=== PATIENT | female | born 2000 | race Two or more races ===

== ENCOUNTER 2024-12-29 06:03 | Emergency (ER) | payer MEDICAID, OTHER ==
[~2024-12-29] VITALS: Ht 162.6 cm; Wt 72.7 kg
[2024-12-29 06:59] LABS: Urine Protein, UAD 2+ (Negative)
[2024-12-29] MEDS: SODIUM CHLORIDE 0.9% 1,000 ML IV ONE (07:50)
[2024-12-29] MEDS: diphenhdrAMINE HCL 50 MG/1 ML VL IV ONE (07:58)
[2024-12-29 08:05] VITALS: PULSE 100; RESP 20; O2SAT 100
--- NOTE | 2024-12-29 08:05 | ED.PDOC ---
GI ASSESSMENT HPI Comments 24 y/o F, presents to the ED for CC of abdominal pain. Patient states, she has been experiencing abdominal pain with associated symptoms of nausea and vomiting onset, x3days ago. Patient reports, positive at home test x1week ago. Patient relays, that emesis has been so severe she has been unable to keep anything down. Patient endorses, LMP to have been approximately [id number] ago. Patient complains of current 8/10 headache and pelvic pain. Patient denies vaginal bleeding, vaginal cramping, diarrhea, melena, fever, or chills. No other symptoms or modifying factors present at this time. Chief Complaint: Nausea/Vomiting Time Seen by MD: 07:00 Reviewed Notes: Nurses Notes, Medications, Allergies Allergies: Coded Allergies: NO KNOWN ALLERGIES (Unverified , 12/29/24) Home Meds Active Scripts Cephalexin (KEFLEX CAPSULE) 250 Mg Cp, 250 MG PO QID for 7 Days, #28 BOTTLE Prov:ARACELI JULIO MD 12/29/24 Information Source: Patient Mode of Arrival: Wheelchair Timing: Days Duration: Since onset Prehospital treatment: None Quality: None Vomitus: Watery Stool: Normal Severity: Moderate Recent: None Recent Hx of: Current Pain Location: Diffuse Modifying Factors: Nothing Associated sign and symptoms: Nausea, Vomiting, Abdominal Pain Past Medical History PAST MEDICAL HISTORY: Denies Surgical History: Denies all surgeries STONE POLISHER History: Denies all STONE POLISHER Hx Family History Family History: Unknown Social History Smoker: Non-Smoker Alcohol: Denies ETOH Use Drugs: Denies Drug Use Lives In: Home Constitutional: denies: chills, diaphoresis, fatigue, fever, malaise, sweats, weakness, others EENTM: denies: blurred vision, double vision, ear bleeding, ear discharge, ear drainage, ear pain, ear ringing, eye pain, eye redness, hearing loss, mouth pain, mouth swelling, nasal discharge, nose bleeding, nose congestion, nose pain, photophobia, tearing, throat pain, throat swelling, voice changes, others Respiratory: denies: cough, hemoptysis, orthopnea, SOB at rest, shortness of breath, SOB with excertion, stridor, wheezing, others Cardiovascular: denies: chest pain, dizzy spells, diaphoresis, Dyspnea on exertion, edema, irregular heart beat, left arm pain, lightheadedness, palpitations, PND, syncope, others Gastrointestinal: reports: abdominal pain, nausea, vomiting; denies: abdomen distended, blood streaked bowels, constipated, diarrhea, dysphagia, difficulty swallowing, hematemesis, melena, poor appetite, poor fluid intake, rectal bleeding, rectal pain, others Genitourinary: reports: ; denies: abnormal vagina bleeding, burning, dyspareunia, dysuria, flank pain, frequency, hematuria, incontinence, pain, vagina discharge, urgency, others Neurological: denies: dizziness, fainting, headache, left sided numbness, left sided weakness, numbness, paresthesia, pre-existing deficit, right sided numbness, right sided weakness, seizure, speech problems, tingling, tremors, weakness, others Musculoskeletal: denies: back pain, gout, joint pain, joint swelling, muscle pain, muscle stiffness, neck pain, others Integumetry: denies: bruises, change in color, change in hair/nails, dryness, laceration, lesions, lumps, rash, wounds, others Allergic/Immunocompromised: denies: Difficulty Healing, Frequent Infections, Hives, Itching, others Hematologic/Lymphatic: denies: anemia, blood clots, easy bleeding, easy br uising, swollen glands, others Endocrine: denies: excessive hunger, excessive sweating, excessive thirst, excessive urination, flushing, intolerance to cold, intolerance to heat, unexplained weight gain, unexplained weight loss, others Psychiatric: denies: anxiety, bipolar disorder, depression, hopeless, panic disorder, schizophrenia, sleepless, suicidal, others All Other Systems: Reviewed and Negative Physical Exam General Appearance: Moderate Distress HEENT: Normal ENT Inspection, Pharynx Normal, TMs Normal Neck: Full Range of Motion, Non-Tender, Normal, Normal Inspection Respiratory: Chest Non-Tender, Lungs Clear, No Accessory Muscle Use, No Respiratory Distress, Normal Breath Sounds Cardiovascular: No Edema, No JVD, No Murmur, No Gallop, Normal Peripheral Pulses, Regular Rate/Rhythm Breast Exam: Deferred Gastrointestinal: No Organomegaly, Non Tender, No Pulsatile Mass, Normal Bowel Sounds, Soft Genitalia: Deferred Pelvic: Deferred Rectal: Deferred Extremities: No calf tenderness, Normal capillary refill, Normal inspection, Normal range of motion, Non-tender, No pedal edema Musculoskeletal : Apperance: Normal Neurologic: Alert, weld technician II-XII nml as Tested, No Motor Deficits, Normal Affect, Normal Mood, No Sensory Deficits Cerebellar Function: Normal Reflexes: Normal Skin: Dry, Normal Color, Warm Peripheral Pulses: 3+ Radial (R), 3+ Radial (L) Lymphatic: No Adenopathy Was a procedure done? Was a procedure done?: No GI differential Dx Differential Diagnosis: Constipation, Diverticular disease, Esophagitis, Gastritis/PUD, Gastroenteritis, Dehydration, Electrolyte Imbalance, , Bacterial, Viral X-Ray, Labs, Meds, VS Vital Signs Date Time Temp Pulse Resp B/P (MAP) Pulse Ox O2 Delivery O2 Flow Rate FiO2 12/29/24 08:05 100 20 100 Room Air* 0 21 12/29/24 08:05 97.6 100 20 104/65 (78) 100 97.6 12/29/24 06:05 97.6 126 22 121/68 95 97.6 Lab Test 12/29/24 06:12 Range/Units Urine Color Yellow Yellow Urine Clarity Ex.turbid Clear Urine pH 5.5 5.0-9.0 Urine Specific [place] 1.035 1.001-1.035 Urine Protein 2+ H Negative Urine Ketones 2+ H Negative Urine Blood Negative Negative /uL Urine Nitrite Negative Negative Urine Bilirubin 1+ H Negative Urine Urobilinogen 3 H Negative mg/dL Urine Leukocyte Esterase 2+ Negative /uL Urine RBC 7 0 - 4 /hpf Urine Microscopic WBC 27 H 0-5 /HPF Urine Squamous Epithelial Cells Many <5 /hpf Urine Transitional Epithelial Cells Few <2 /hpf Urine Bacteria None seen None Seen /hpf Urine Hyaline Casts Many 0 - 2 /lpf Urine Mucus Moderate None Seen Urine Glucose Trace Normal mg/dL Urine Test Positive Negative Current Medications Medications (Trade) Dose Ordered Sig/Jaimie Route Start Time Stop Time Status Last Admin Sodium Chloride 1,000 ml @ 1,000 mls/hr Q1H ONCE IV 12/29/24 08:00 12/29/24 08:59 DC 12/29/24 07:50 Diphenhydramine HCl (Benadryl Injection) 25 mg ONCE ONCE IV 12/29/24 08:00 12/29/24 08:01 DC 12/29/24 07:58 Patient alert. Nausea vomiting. She is . Urinalysis shows UTI. Establish intravenous access. Was given fluids. Was given Benadryl. Was given prescription of Keflex antibiotic. Explained to the patient. Was told to follow up with her primary care physician. Was told to come back if there is any problem. [facility] [id number] [place] [id number] Ph: [phone] DIAGNOSTIC IMAGING Diagnostic Imaging Report : [id number] Signed PATIENT: CECILE RAND ACCT: [id number] UNIT: [id number] : 2000 LOC: ER ROOM / BED: / AGE / SEX: 24 / F ADM STATUS: REG ER SERVICE [id number] ORDERING PHYSICIAN: ARACELI JULIO MD PROCEDURE(s): OB4US - OB ULTRASOUND COMP LESS 14WKS REASON: cramping ORDER NUMBER(s): [id number], ACCESSION NUMBER(s): [id number] US OB ULTRASOUND COMP LESS 14WKS HISTORY: cramping COMPARISON: None TECHNIQUE: Transabdominal and transvaginal images with color doppler were ob tained of the pelvis. FINDINGS: Uterus: - Measures 7.1 x 5.7 x 4.5 cm in length. - Mass lesions: None - Intrauterine : Present - Gestational sac: Present - Yolk sac: Present - Embryonic pole: Present [place] rump length: 0.5 cm, corresponding to 6 weeks and 1 days. Mean sac diameter: 1.6 cm Embryonic heart activity: Present, 124 BPM Subchorionic hematomas: Yes Right ovary: - Measures 3.1 x 3.1 x 2.8 cm - Vascularity: Normal flow on Doppler images. - Mass lesions: None Left ovary: - Measures 2.9 x 2.6 x 2.6 cm - Vascularity: Normal flow on Doppler images. - Mass lesions: 1.3 x 1.5 x 1.6 cm cm echogenic lesion in the left ovary could be a dermoid. Adnexal masses: None Free fluid: None Other: None IMPRESSION: Single live intrauterine with a sonographic age of 6 weeks and 0 days. 1.3 x 1.5 x 1.6 cm cm echogenic lesion in the left ovary could be a dermoid. Small subchorionic hematoma. ATED BY: VÍCTOR GUILLAUME MD DICTATED DATE/TIME: 12/29/24906 SIGNED BY: VÍCTOR GUILLAUME MD SIGNED DATE/TIME: 12/29/24906 CC: Time of 1ST Reevaluation: 07:30 Reevaluation 1ST: Unchanged Patient Education/Counseling: Diagnosis, Treatment Family Education/Counseling: No Family Present SEPSIS Sepsis Screen Date sepsis recognized/suspect: Dec 29, 2024 Time Sepsis recognized/suspect: 609 Recent Procedure: No On Antibiotic Therapy: No Respiratory Rate >20: Yes Heart Rate >90: Yes Temp<36 C (96.8 F) or >38.3 C: No SBP <90 or MAP <65 mmHG: No New Acute Mental Status Change: No Is the patient on CPAP, BIPAP,: No Physician Orders Ob Ultrasound Comp Less 14wks (12/29/24 07:48) Vital Signs Date Time Temp Pulse Resp B/P (MAP) Pulse Ox O2 Delivery O2 Flow Rate FiO2 12/29/24 08:05 100 20 100 Room Air* 0 21 12/29/24 08:05 97.6 100 20 104/65 (78) 100 97.6 12/29/24 06:05 97.6 126 22 121/68 95 97.6 Medications Medications Dose Ordered Sig/Jaimie Route Start Time Stop Time Status Last Admin Dose Admin Diphenhydramine HCl 25 mg ONCE ONCE IV 12/29/24 08:00 12/29/24 08:01 DC 12/29/24 07:58 Sodium Chloride 1,000 ml @ 1,000 mls/hr Q1H ONCE IV 12/29/24 08:00 12/29/24 08:59 DC 12/29/24 07:50 Departure 1 Departure Time of Disposition: 09:02 Impression: Primary Impression: Normal Qualified Codes: Z34.90 - Encounter for supervision of normal , unspecified, unspecified trimester Additional Impression: Urinary tract infection Qualified Codes: N30.01 - Acute cystitis with hematuria Disposition: 01 HOME / SELF CARE / HOMELESS Condition: Good e-Prescriptions Cephalexin (KEFLEX CAPSULE) 250 Mg Cp 250 MG PO QID for 7 Days, #28 BOTTLE Prov: ARACELI JULIO MD 12/29/24 Discharged With: Self Critical Care Note Critical Care Time?: No Stability Stability form required: No Heart Score Heart Score: Heart Score Response (Comments) Value History N/A 0 EKG N/A 0 Age N/A 0 Risk Factors N/A 0 Troponin N/A 0 Total 0 I personally scribed for ARACELI JULIO MD ([email or web address]) on 12/29/24 at 08:05. Electronically submitted by Amaris Patel ([email or web address]). I personally scribed for ARACELI JULIO MD ([email or web address]) on 12/29/24 at 10:20. Electronically submitted by Amaris Patel ([email or web address] ([employer] ARACELI JULIO MD Dec 29, 2024 08:05
[2024-12-29 09:00] VITALS: TEMP 97.7
[2024-12-29] MEDS ORDERED: CEPH250C PO (09:03)
--- NOTE | 2024-12-29 09:09 | DVH ---
US OB ULTRASOUND COMP LESS 14WKS HISTORY: cramping COMPARISON: None TECHNIQUE: Transabdominal and transvaginal images with color doppler were obtained of the pelvis. FINDINGS: Uterus: - Measures 7.1 x 5.7 x 4.5 cm in length. - Mass lesions: None - Intrauterine : Present - Gestational sac: Present - Yolk sac: Present - Embryonic pole: Present [place] rump length: 0.5 cm, corresponding to 6 weeks and 1 days. Mean sac diameter: 1.6 cm Embryonic heart activity: Present, 124 BPM Subchorionic hematomas: Yes Right ovary: - Measures 3.1 x 3.1 x 2.8 cm - Vascularity: Normal flow on Doppler images. - Mass lesions: None Left ovary: - Measures 2.9 x 2.6 x 2.6 cm - Vascularity: Normal flow on Doppler images. - Mass lesions: 1.3 x 1.5 x 1.6 cm cm echogenic lesion in the left ovary could be a dermoid. Adnexal masses: None Free fluid: None Other: None IMPRESSION: Single live intrauterine with a sonographic age of 6 weeks and 0 days. 1.3 x 1.5 x 1.6 cm cm echogenic lesion in the left ovary could be a dermoid. Small subchorionic hematoma.
[2024-12-29 11:59] VITALS: BP 120/53; PULSE 92; RESP 18; O2SAT 100
== END 2024-12-29 11:59 | disposition home or self-care (01) ==
LOC: ER 06:03
DX: O26.891 Other specified pregnancy related conditions, first trimester (principal); O20.8 Other hemorrhage in early pregnancy; O21.9 Vomiting of pregnancy, unspecified; O23.41 Unspecified infection of urinary tract in pregnancy, first trimester; N39.0 Urinary tract infection, site not specified; Z3A.01 Less than 8 weeks gestation of pregnancy
CPT/HCPCS: 76801; 76817; 81001; 81025; 96361; 96374; 99285; J1200; J7030